=== PATIENT | female | born 1995 | race Caucasian/White ===

== ENCOUNTER 2016-11-30 11:03 | Day surgery (SDC) | payer BC ==
[2016-11-27 11:07] VITALS: BMI 23.3
[~2016-11-30 11:03] MED LIST: DEXAMETHASONE SOD PHOSPHATE 10 MG/ML 1 ML VIAL IV ONE; HYDROmorphone 1 MG/ML 1 ML SYRINGE IVP PRN; LACTATED RINGERS 1,000 ML IV SCH; MIDAZOLAM 2 MG/2 ML VIAL IV PRN; ONDANSETRON 4 MG/2 ML VIAL IVP ONE; SODIUM CHLORIDE 0.9% 1,000 ML IV SCH
[2016-11-30] MEDS ORDERED: MIDAZOLAM 2 MG/2 ML VIAL ONE (12:44)
[2016-11-30] MEDS ORDERED: PROPOFOL 10 MG/ML 20 ML VIAL IV ONE (12:44)
[2016-11-30] MEDS ORDERED: LIDOCAINE 1% INJ 10MG/ML (20 ML MDV) ONE (12:44)
[2016-11-30] MEDS ORDERED: ISOPROTERENOL 250 MCG/1.25 ML SYR IV ONE (12:44)
[2016-11-30] MEDS ORDERED: fentaNYL (PF) 50 MCG/ML 2 ML AMP ONE (12:44)
[2016-11-30] MEDS ORDERED: PHENYLEPHRINE-0.9% NACL SYG 1 MG/10 ML SYRINGE ONE (12:44)
[2016-11-30] MEDS ORDERED: LIDOCAINE 2% INJ 20 MG/ML SQ ONE (13:12)
[2016-11-30] MEDS ORDERED: ACETAMINOPHEN TAB 325 MG TAB PO PRN (14:16)
[2016-11-30] MEDS ORDERED: ACETAMINOPHEN IV (For NPO) 1,000 MG in EMPTY BAG 1 BAG IVPB ONE (14:16)
[2016-11-30] MEDS ORDERED: ALBUTEROL INHALER 60 PUFF/8 GM INHALER INHALATION PRN (14:17)
--- NOTE | 2016-11-30 15:03 | CE ---
DATE OF SERVICE: Camilla Long is a 21-year-old female who has a recurrent palpitations and dizzy spells and presyncopal spells who was brought in for an EP study for evaluation for recurrent palpitations, venous sheaths were placed in the right groin. An 8 Marshallese sheath, a 7 Marshallese sheath and a 6 Marshallese sheath was placed under local anesthesia after full prep and drape. Diagnostic catheter was placed in the high right atrial area, His bundle area and RV. Later coronary sinus catheter was placed. Later catheter was placed in the coronary sinus. Baseline measurements were as follows and were normal: Sinus cycle length 728 ms, NM interval 138 ms, QRS 103 ms, QT 348 ms, AH 97 ms, HV 31 ms. Sinus node recovery times at 600, five hundred and 400 ms were 1258, 1333 and 1085 ms. The corresponding corrected sinus recovery times were within normal limits. There was no evidence for slow pathway conduction and no delta waves. AV node Wenckebach block in the baseline state 430 ms, VA block greater than 600 ms. Isuprel was started straight pacing was performed. There was no evidence for slow pathway conduction or Delta waves. AV node Wenckebach block improved to 220 ms. VA Wenckebach block 310 ms. Atrial extrastimulation was performed and AV node ERP was ( )/200 ms. VA ERP was 370/290 ms paced. Burst stimulation from the high right atrium was performed. Burst stimulation from the right ventricular was performed. No SVT or VT was induced. Atrial extrastimulation was performed after triple extra stimuli. No SVT was induced. Burst stimulation was performed from the high right atrium. No SVT was induced. Isuprel was stopped and the coronary sinus catheter was placed. AV node Wenckebach block from the coronary sinus was 340 ms. No delta waves, no slow pathway conduction, atrial ERP was 450/310/330 milliseconds from the coronary. VA Wenckebach block at 500 ms. A detailed EP study was performed both on high-dose Isuprel, during Isuprel washout and in the baseline state. No SVT was induced. There was no evidence of slow pathway conduction or any other excessive pathway conduction or induction of atrial tachycardia. All catheters were removed and patient was transferred back to telemetry. RESULT: 1. Diagnostic EP study for palpitations reveled normal baseline measurements. 2. Normal sinus node function. 3. Normal AV node function without evidence of slow pathway conduction. 4. No evidence for any excessive pathway conduction. 5. No induction of ST-T or VT. PLAN: Tilt table testing tomorrow.
--- NOTE | 2016-11-30 15:04 | LTR ---
November 30, 2016 RE: MercedesCamilla Dear Dr. Lares: I had the pleasure of seeing Keyana Long in electrophysiology follow up. Keyana underwent a diagnostic EP study, which did not reveal any inducible arrhythmias. In fact, EP study was completely normal both on and off Isuprel. I will schedule her for a tilt table test tomorrow to see if she has vasodepressive syncope as the cause of her secondary sinus tachycardia and palpitations. Thank you for entrusting me with care of your patient. Warm regards, Sincerely, LAURENT BERG MD
[2016-11-30] MEDS ORDERED: ALBUTEROL NEBULIZED 2.5 MG/3 ML INHALATION PRN (15:31)
[2016-11-30 18:51] VITALS: RESP 16
[2016-12-01] MEDS ORDERED: NORGESTIMATE ETHINYL ESTRADIOL PO SCH (09:00)
[2016-12-01] MEDS ORDERED: FLUDROCORTISONE 0.1 MG TAB PO SCH (09:00)
[2016-12-01] MEDS ORDERED: SODIUM CHLORIDE 0.9% 500 ML IV ONE (10:10)
[2016-12-01 11:24] VITALS: BP 99/62; PULSE 72; TEMP 98.9
--- NOTE | 2016-12-01 17:27 | PN ---
Ms. Camilla Long underwent diagnostic EP study, which was completely normal and subsequently, she underwent a tilt test, which showed evidence of neurocardiogenic syncope as well as orthostatic intolerance with secondary neurocardiogenic syncope. She was monitored overnight on telemetry and will be discharged home today. On examination, heart sounds are normal. Breath sounds are normal. Vitals stable. Blood pressure was 99/66 mmHg. Afebrile 98.9 degrees Fahrenheit. Respirations normal. IMPRESSION: Recurrent palpitations and presyncope and syncope likely secondary to orthostatic intolerance and neurocardiogenic syncope. No evidence for any arrhythmias. SUGGEST: 1. Increase fluid intake. 2. Increase salt intake. 3. Endurance training. 4. Strength training of core body and lower extremity muscles.
--- NOTE | 2016-12-01 17:34 | CE ---
DATE OF SERVICE: TILT TABLE TEST Baseline 12-lead ECG shows normal sinus rhythm and normal TN interval and incomplete right bundle branch block, normal QT interval, normal ST segments. The patient underwent tilt table test per protocol. Baseline blood pressure 101/56 mm of Hg. Baseline heart rate 79 beats a minute. The patient was tilted upright at an angle and angle of 70 degrees per protocol. There was an immediate rise in her heart rate to 116 beats a minute. Within 16 minutes, she started feeling hot, ears felt funny. She was lightheaded and then became pale and syncopal. Lowest blood pressure that was recorded just before passing out was 87/50 millimeters of mercury and this was preceded by a heart rate of 131 beats. When she was laid supine, her blood pressure and heart rate normalized. IMPRESSION: 1. Increase in heart rate upon assuming upright position and heart rate remain persistently elevated greater than 30 beats a minute as compared to baseline. 2. Secondary neurocardiogenic response to upright tilting. 3. Likely orthostatic intolerance. 4. Secondary due to cardiogenic syncope. Suggest: Increase fluid and salt intake. Strength training and lower extremities and isometric exercises as well as endurance training.
== END 2016-12-01 12:18 | disposition home or self-care (01) ==
LOC: CATHEP 11:03 → 3OBS 14:00 → CATHEP 12-01 12:18
PROVIDERS: ATTEND Internal Medicine Clinical Cardiac Electrophysiology
DX: R55 Syncope and collapse (principal); I48.92 Unspecified atrial flutter; R00.2 Palpitations; I45.10 Unspecified right bundle-branch block; I49.8 Other specified cardiac arrhythmias; Z82.49 Family history of ischemic heart disease and other diseases of the circulatory system; J45.909 Unspecified asthma, uncomplicated; Z79.899 Other long term (current) drug therapy; Z88.8 Allergy status to other drugs, medicaments and biological substances
CPT/HCPCS: 93623; 93620; 93660; 81025; C1894; C1769 ×2; C1730 ×2; C1892; J2001 ×2; J2250; J3010; J0131; J2370; J2704

== ENCOUNTER → 2017-10-19 | Outpatient (CLI) | payer BC ==
[2017-10-19 12:48] LABS: Basophils # (A) 0.1 k/uL (0-0.2); Basophils % (A) 1 %; Eosinophils # (A) 0.5 k/uL (0-0.7); Eosinophils % (A) 5 %; HCT 40.9 % (34.0-46.0); HGB 12.8 gm/dL (11.4-16.0); Lymphocytes # (A) 2.2 k/uL (1.0-4.8); Lymphocytes % (A) 23 %; MCH 26.6 pg (25.0-35.0); MCHC 31.3 g/dL (31.0-37.0); MCV 85.1 fL (80.0-100.0); Monocytes # (A) 0.5 k/uL (0-1.0); Monocytes % (A) 5 %; Neutrophils # (A) 6.4 k/uL (1.3-7.7); Neutrophils % (A) 65 %; Platelet Count 279 k/uL (150-450); RBC 4.81 m/uL (3.80-5.40); RDW 12.6 % (11.5-15.5); WBC 9.8 k/uL (3.8-10.6)
[2017-10-19 13:04] LABS: ALT 22 U/L (9-52); AST 17 U/L (14-36); Albumin 4.4 g/dL (3.5-5.0); Alkaline Phosphatase 62 U/L (38-126); Anion Gap 12 mmol/L; Blood Urea Nitrogen 16 mg/dL (7-17); Calcium 9.7 mg/dL (8.4-10.2); Carbon Dioxide 23 mmol/L (22-30); Chloride 105 mmol/L (98-107); Glucose 92 mg/dL (74-99); Potassium 4.6 mmol/L (3.5-5.1); Sodium 140 mmol/L (137-145); Total Bilirubin 0.7 mg/dL (0.2-1.3); Total Protein 7.2 g/dL (6.3-8.2)
[2017-10-19 13:43] LABS: T4, Free (Free Thyroxine) 1.17 ng/dL (0.78-2.19)
--- NOTE | 2017-10-19 17:53 | ECHOF ---
Referral Reason:I95.1 Orthostatic hypotension,R00.2 Palp MEASUREMENTS -------- HEIGHT: 170.2 cm WEIGHT: 77.1 kg BP: 111/58 RVIDd: 2.4 cm (< 3.3) IVSd: 0.7 cm (0.6 - 1.1) LVIDd: 4.6 cm (3.9 - 5.3) LVPWd: 0.8 cm (0.6 - 1.1) IVSs: 1.4 cm LVIDs: 3.1 cm LVPWs: 1.3 cm LA Diam: 2.4 cm (2.7 - 3.8) Ao Diam: 2.7 cm (2.0 - 3.7) AV Cusp: 2.1 cm (1.5 - 2.6) MV EXCURSION: 11.844 mm (> 18.000) MV EF SLOPE: 102 mm/s (70 - 150) EPSS: 0.7 cm MV E Kimani: 1.03 m/s MV DecT: 165 ms MV A Kimani: 0.64 m/s MV E/A Ratio: 1.61 FINDINGS -------- Sinus rhythm. This was a technically good study. The left ventricular size is normal. Left ventricular wall thickness is normal. Overall left vent ricular systolic function is normal with, an EF between 55 - 60 %. The right ventricle is normal in size and function. The left atrium is normal in size. The right atrium is normal in size. The aortic valve is trileaflet and appears structurally normal. Trace to mild aortic regurgitation. The tricuspid valve appears structurally normal. Trace/mild (physiologic) pulmonic regurgitation. The aortic root size is normal. Normal inferior vena cava with normal inspiratory collapse consistent with estimated right atrial pre ssure of 5 mmHg. There is no pericardial effusion. CONCLUSIONS -------- 1. Sinus rhythm. 2. This was a technically good study. 3. The left ventricular size is normal. 4. Left ventricular wall thickness is normal. 5. Overall left ventricular systolic function is normal with, an EF between 55 - 60 %. 6. The right ventricle is normal in size and function. 7. The left atrium is normal in size. 8. The right atrium is normal in size. 9. The aortic valve is trileaflet and appears structurally normal. 10. Trace to mild aortic regurgitation. 11. The tricuspid valve appears structurally normal. 12. Trace/mild (physiologic) pulmonic regurgitation. 13. The aortic root size is normal. 14. Normal inferior vena cava with normal inspiratory collapse consistent with estimated right atrial pressure of 5 mmHg. 15. There is no pericardial effusion. INTE[employer]ATION SOLUTION ARCHITECT: Inna Butcher RDCS
== END | disposition home or self-care (01) ==
LOC: RADECHMAIN 12:17
PROVIDERS: ATTEND Internal Medicine Critical Care Medicine
DX: I35.1 Nonrheumatic aortic (valve) insufficiency (principal); R00.2 Palpitations; J45.909 Unspecified asthma, uncomplicated; I95.1 Orthostatic hypotension
CPT/HCPCS: 36415; 80053; 82533; 84439; 84443; 85025; 93225; 93226; 93306

== ENCOUNTER 2018-10-07 11:24 | Emergency (ER) | payer BC ==
[2018-10-07 11:30] VITALS: RESP 18; TEMP 98.1
[2018-10-07] MEDS ORDERED: KETOROLAC 30 MG/ML 1 ML VIAL IVP STA (11:49)
[2018-10-07] MEDS ORDERED: SODIUM CHLORIDE 0.9% 1,000 ML IV STA (11:49)
[2018-10-07] MEDS ORDERED: ONDANSETRON 4 MG/2 ML VIAL IVP STA (11:49)
--- NOTE | 2018-10-07 11:55 | ED ---
Abdominal Pain HPI - General Chief Complaint: Abdominal Pain Stated Complaint: Abd.pain/nausea Time Seen by Provider: 10/07/18 11:34 Source: patient, RN notes reviewed, old records reviewed Mode of arrival: ambulatory Limitations: no limitations - History of Present Illness Initial Comments: This Patient is a 23-year-old female who presents emergency department today with chief complaint of right lower abdominal pain for the past week. She reports it seems to be worse whenever she urinates or eating. She states it does not burn to urinate. Just some pressure and symptoms of urinating cause pain. Patient states that she is due for her menstrual cycle and waning week. She denies chance of . She denies any abnormal vaginal bleeding or discharge. She feels nauseated but has had no vomiting. Patient relates that she has no significant abdominal history. - Related Data Home Medications Medication Instructions Recorded Confirmed Ibuprofen [Motrin Ib] 800 mg PO Q6HR PRN 10/07/18 10/07/18 Previous Rx's Medication Instructions Recorded Acetaminophen with Codeine 1 tab PO Q6H PRN 3 Days #12 tab 10/07/18 [Tylenol w/codeine #3] Allergies Allergy/AdvReac Type Severity Reaction Status Date / Time oseltamivir [From Tamiflu] AdvReac Nausea & Verified 10/07/18 12:19 Vomiting Review of Systems ROS Statement: Those systems with pertinent positive or pertinent negative responses have been documented in the HPI. ROS Other: All systems not noted in ROS Statement are negative. Past Medical History Past Medical History: Asthma Additional Past Medical History / Comment(s): Palpitations, lightheaded, dizziness, occasional migraines, see Dr Rodriguez H & P History of Any Multi-Drug Resistant Organisms: None Reported Past Surgical History: Adenoidectomy, Orthopedic Surgery, Tonsillectomy Additional Past Surgical History / Comment(s): ANKLE, WRIST, LYMPH NODE BX NEGATIVE Past Anesthesia/Blood Transfusion Reactions: No Reported Reaction Past Psychological History: No Psychological Hx Reported Smoking Status: Never smoker Past Alcohol Use History: Occasional Past Drug Use History: None Reported - Past Family History Mother Family Medical History: Asthma, Fibromyalgia, Hypertension Additional Family Medical History / Comment(s): [place], migraines, scolosis Father Family Medical History: No Reported History Brother(s) Family Medical History: Asthma Additional Family Medical History / Comment(s): Migraines, scolosis, anxiety Sister(s) Family Medical History: Asthma Additional Family Medical History / Comment(s): Migraines, scolosis General Exam - General Exam Comments Initial Comments: Pleasant 23-year-old female. Alert and oriented. No distress. Limitations: no limitations General appearance: alert, in no apparent distress Head exam: Present: atraumatic, normocephalic, normal inspection Eye exam: Present: normal appearance, PERRL, EOMI. Absent: scleral icterus, conjunctival injection, periorbital swelling ENT exam: Present: normal exam, mucous membranes moist Neck exam: Present: normal inspection. Absent: tenderness, meningismus, lymphadenopathy Respiratory exam: Present: normal lung sounds bilaterally. Absent: respiratory distress, wheezes, rales, rhonchi, stridor Cardiovascular Exam: Present: regular rate, normal rhythm, normal heart sounds. Absent: systolic murmur, diastolic murmur, rubs, gallop, clicks GI/Abdominal exam: Present: soft, tenderness (Right lower quadrant tenderness), normal bowel sounds. Absent: distended, guarding, rebound, rigid Extremities exam: Present: normal inspection, full ROM, normal capillary refill. Absent: tenderness, pedal edema, joint swelling, calf tenderness Back exam: Present: normal inspection Neurological exam: Present: alert, oriented X3, CN II-XII intact Psychiatric exam: Present: normal affect, normal mood Course Vital Signs 10/07/18 10/07/18 11:27 12:29 Temperature 98.1 F Pulse Rate 94 81 Respiratory 18 18 Rate Blood Pressure 123/77 109/71 O2 Sat by Pulse 100 99 Oximetry Medical Decision Making - Medical Decision Making Patient's 23-year-old female who presents with complaint of right lower quadrant tenderness 1 week. She has no fever. She started on IV fluids and lab work was obtained. Patient's labwork was reviewed and negative for any acute changes. White count was within normal limits. Liver enzymes are normal. Patient's reevaluation to T-System some right lower quadrant pain. I decided to complete a transvaginal ultrasound. There is evidence of a very large right ovarian cyst measuring 4 x 2 cm. Patient has been advised of these symptoms. There is no evidence of torsion. Patient was advised to complete a possibility of early appendicitis, but very low suspicion to no fever and normal white blood cell count. Patient will be discharged with a short course of pain medication. Opiates or talking for completed. Discussed following up with [employer]. All questions answered return parameters were discussed. - Lab Data Result diagrams: 10/07/18 11:45 10/07/18 11:45 Lab Results 10/07/18 10/07/18 10/07/18 Range/Units 11:45 11:45 11:45 WBC 9.3 (3.8-10.6) k/uL RBC 4.90 (3.80-5.40) m/uL Hgb 13.6 (11.4-16.0) gm/dL Hct 41.3 (34.0-46.0) % MCV 84.3 (80.0-100.0) fL MCH 27.8 (25.0-35.0) pg MCHC 33.0 (31.0-37.0) g/dL RDW 13.3 (11.5-15.5) % Plt Count 268 (150-450) k/uL Neutrophils % 67 % Lymphocytes % 22 % Monocytes % 6 % Eosinophils % 4 % Basophils % 0 % Neutrophils # 6.3 (1.3-7.7) k/uL Lymphocytes # 2.0 (1.0-4.8) k/uL Monocytes # 0.5 (0-1.0) k/uL Eosinophils # 0.4 (0-0.7) k/uL Basophils # 0.0 (0-0.2) k/uL PT 10.0 (9.0-12.0) sec INR 0.9 (<1.2) APTT 26.2 (22.0-30.0) sec Sodium 138 (137-145) mmol/L Potassium 4.3 (3.5-5.1) mmol/L Chloride 102 (98-107) mmol/L Carbon Dioxide 25 (22-30) mmol/L Anion Gap 11 mmol/L BUN 19 H (7-17) mg/dL Creatinine 0.59 (0.52-1.04) mg/dL Est GFR (CKD-EPI)AfAm >90 (>60 ml/min/1.73 sqM) Est GFR (CKD-EPI)NonAf >90 (>60 ml/min/1.73 sqM) Glucose 95 (74-99) mg/dL Calcium 9.7 (8.4-10.2) mg/dL Total Bilirubin 0.6 (0.2-1.3) mg/dL AST 24 (14-36) U/L ALT 9 (9-52) U/L Alkaline Phosphatase 66 (38-126) U/L Total Protein 7.5 (6.3-8.2) g/dL Albumin 4.6 (3.5-5.0) g/dL Amylase 53 (30-110) U/L Lipase 40 (23-300) U/L Urine Color Urine Appearance (Clear) Urine pH (5.0-8.0) Ur Specific [place] (1.001-1.035) Urine Protein (Negative) Urine Glucose (UA) (Negative) Urine Ketones (Negative) Urine Blood (Negative) Urine Nitrite (Negative) Urine Bilirubin (Negative) Urine Urobilinogen (<2.0) mg/dL Ur Leukocyte Esterase (Negative) Urine WBC (0-5) /hpf Ur Squamous Epith Cells (0-4) /hpf Urine Bacteria (None) /hpf Urine Mucus (None) /hpf Urine HCG, Qual (Not Detectd) 10/07/18 10/07/18 Range/Units 11:45 11:45 WBC (3.8-10.6) k/uL RBC (3.80-5.40) m/uL Hgb (11.4-16.0) gm/dL Hct (34.0-46.0) % MCV (80.0-100.0) fL MCH (25.0-35.0) pg MCHC (31.0-37.0) g/dL RDW (11.5-15.5) % Plt Count (150-450) k/uL Neutrophils % % Lymphocytes % % Monocytes % % Eosinophils % % Basophils % % Neutrophils # (1.3-7.7) k/uL Lymphocytes # (1.0-4.8) k/uL Monocytes # (0-1.0) k/uL Eosinophils # (0-0.7) k/uL Basophils # (0-0.2) k/uL PT (9.0-12.0) sec INR (<1.2) APTT (22.0-30.0) sec Sodium (137-145) mmol/L Potassium (3.5-5.1) mmol/L Chloride (98-107) mmol/L Carbon Dioxide (22-30) mmol/L Anion Gap mmol/L BUN (7-17) mg/dL Creatinine (0.52-1.04) mg/dL Est GFR (CKD-EPI)AfAm (>60 ml/min/1.73 sqM) Est GFR (CKD-EPI)NonAf (>60 ml/min/1.73 sqM) Glucose (74-99) mg/dL Calcium (8.4-10.2) mg/dL Total Bilirubin (0.2-1.3) mg/dL AST (14-36) U/L ALT (9-52) U/L Alkaline Phosphatase (38-126) U/L Total Protein (6.3-8.2) g/dL Albumin (3.5-5.0) g/dL Amylase (30-110) U/L Lipase (23-300) U/L Urine Color Yellow Urine Appearance Cloudy H (Clear) Urine pH 6.0 (5.0-8.0) Ur Specific [place] 1.020 (1.001-1.035) Urine Protein Trace H (Negative) Urine Glucose (UA) Negative (Negative) Urine Ketones Negative (Negative) Urine Blood Negative (Negative) Urine Nitrite Negative (Negative) Urine Bilirubin Negative (Negative) Urine Urobilinogen <2.0 (<2.0) mg/dL Ur Leukocyte Esterase Large H (Negative) Urine WBC 5 (0-5) /hpf Ur Squamous Epith Cells 9 H (0-4) /hpf Urine Bacteria Rare H (None) /hpf Urine Mucus Occasional H (None) /hpf Urine HCG, Qual Not Detected (Not Detectd) - Radiology Data Radiology results: report reviewed Small amount of free fluid in the cul-de-sac. Multi-septal focus associated with right ovary could represent hemorrhagic cyst, endometrioma, torsion is not evident. Disposition Clinical Impression: Right ovarian cyst Disposition: HOME SELF-CARE Condition: Good Instructions: Ovarian Cyst (ED) Additional Instructions: Patient advised to follow-up with primary care provider and OBGYN. Return to emergency department if any alarming signs or symptoms occur. Prescriptions: Acetaminophen with Codeine [Tylenol w/codeine #3] 1 tab PO Q6H PRN 3 Days #12 tab PRN Reason: Pain Is patient prescribed a controlled substance at d/c from ED?: No Referrals: Ac Jenkins DO [Primary Care Provider] - 1-2 days Lynn Abarca DO [Doctor of Osteopathic Medicine] - 1-2 days Time of Disposition: 15:01
[2018-10-07 12:27] LABS: Basophils % (A) 0 %; Eosinophils # (A) 0.4 k/uL (0-0.7); Eosinophils % (A) 4 %; HCT 41.3 % (34.0-46.0); HGB 13.6 gm/dL (11.4-16.0); Lymphocytes % (A) 22 %; MCH 27.8 pg (25.0-35.0); MCV 84.3 fL (80.0-100.0); Mean Platelet Volume 6.7; Monocytes # (A) 0.5 k/uL (0-1.0); Monocytes % (A) 6 %; Neutrophils # (A) 6.3 k/uL (1.3-7.7); Neutrophils % (A) 67 %; Platelet Count 268 k/uL (150-450); RDW 13.3 % (11.5-15.5); WBC 9.3 k/uL (3.8-10.6)
[2018-10-07 12:35] LABS: Appearance,Urine Cloudy (Clear); Bacteria,Urine Rare /hpf; Bilirubin,Urine Negative (Negative); Blood,Urine Negative (Negative); Color,Urine Yellow; Glucose,Urine (UA) Negative (Negative); INR 0.9 (<1.2); Ketones,Urine Negative (Negative); Leukocyte Esterase,Urine Large (Negative); Mucus,Urine Occasional /hpf; Nitrite,Urine Negative (Negative); Partial Thromboplastin Time 26.2 sec (22.0-30.0); Protein,Urine Trace (Negative); Squamous Epithelial Cell,Urine 9 /hpf (0-4); Urobilinogen,Urine <2.0 mg/dL (<2.0)
[2018-10-07 12:36] LABS: ALT 9 U/L (9-52); AST 24 U/L (14-36); Albumin 4.6 g/dL (3.5-5.0); Alkaline Phosphatase 66 U/L (38-126); Amylase 53 U/L (30-110); Anion Gap 11 mmol/L; Blood Urea Nitrogen 19 mg/dL (7-17); Calcium 9.7 mg/dL (8.4-10.2); Carbon Dioxide 25 mmol/L (22-30); Chloride 102 mmol/L (98-107); Glucose 95 mg/dL (74-99); Lipase 40 U/L (23-300); Potassium 4.3 mmol/L (3.5-5.1); Sodium 138 mmol/L (137-145); Total Bilirubin 0.6 mg/dL (0.2-1.3); Total Protein 7.5 g/dL (6.3-8.2)
--- NOTE | 2018-10-07 12:59 | XR ---
Abdomen HISTORY: Right-sided abdominal pain Frontal view of the abdomen on 2 images correlated prior abdomen 06/17/2003 There is a spinal curvature again noted. Lung bases are clear. No evident pneumoperitoneum or bowel o bstruction. No pathologic calcification. IMPRESSION: Nonobstructive bowel gas pattern.
--- NOTE | 2018-10-07 14:50 | US ---
EXAMINATION TYPE: US transvaginal DATE OF EXAM: 10/07/2018 COMPARISON: NONE CLINICAL HISTORY: Pain. Right pelvic pain for 1 week TECHNIQUE: Transvaginal (TV). Date of LMP: beginning september EXAM MEASUREMENTS: Uterus: 8.5 x 3.5 x 4.6 cm Endometrial Stripe: 0.8 cm Right Ovary: 6.5 x 3.8 x 4.2 cm Left Ovary: 3.8 x 1.9 x 2.0 cm 1. Uterus: Anteverted wnl 2. Endometrium: wnl 3. Right Ovary: enlarged with complex area = 4.7 x 3.0 x 4.1cm 4. Left Ovary: follicles noted Spectral, color and waveform doppler imaging shows arterial and venous flow within the ovaries; the re is no evidence for ovarian torsion. 5. Bilateral Adnexa: small amount of free fluid right adnexa 6. Posterior cul-de-sac: small amount of free fluid IMPRESSION: Small amount of free fluid in the cul-de-sac. Multiseptated focus associated with the rig ht ovary could represent hemorrhagic cyst, endometrioma, torsion is not evident
[2018-10-07 15:26] VITALS: BP 111/70; PULSE 90
== END 2018-10-07 15:26 | disposition home or self-care (01) ==
LOC: EC 11:24
DX: N83.201 Unspecified ovarian cyst, right side (principal); R11.0 Nausea; Z88.8 Allergy status to other drugs, medicaments and biological substances
CPT/HCPCS: 36415; 80053; 82150; 83690; 85025; 85610; 85730; 81001; 81025; 74018; 93975; 76830; 99285; 96374; 96375; 96361 ×3; J2405; J1885

== ENCOUNTER → 2023-08-18 | Outpatient (CLI) | payer OTHER | END | disposition home or self-care (01) | LOC: LABWHC1 15:14 | PROVIDERS: ATTEND Internal Medicine | DX: Z34.90 Encounter for supervision of normal pregnancy, unspecified, unspecified trimester (principal); Z3A.00 Weeks of gestation of pregnancy not specified | CPT/HCPCS: 36415; 84702 ==

== ENCOUNTER → 2023-08-20 | Outpatient (CLI) | payer OTHER ==
--- NOTE | 2023-08-20 13:12 | US ---
EXAMINATION TYPE: Transabdominal DATE OF EXAM: 08/20/2023 12:58 PM COMPARISON: Vaginal ultrasound 10/08/2018 CLINICAL INDICATION: Female, 28 years old with history of Z34.90, N93.9 ABNORMAL UTERINE AND VAGINAL BLEEDIN; Dark red vaginal bleeding for 1 week EXAM PERFORMED: Transabdominal (TA) EXAM MEASUREMENTS: GESTATIONAL AGE / DATING Physician Established: Not yet established Dates by LMP: (5 weeks/6 days) EDC: 04/15/24 Dates by First Scan: No previous this is first scan Dates by Current Scan for: No IUP seen at this time MATERNAL ANATOMY Uterus: 8.9 x 4.5 x 6.5cm Right Ovary: 3.0 x 1.9 x 1.4cm Left Ovary: 4.7 x 4.2 x 2.5cm Post CDS / Adnexa: wnl Presence of free fluid: no Presence of corpus luteal cyst: yes, anechoic area left ovary = 2.7 x 2.5 x 2.7cm GESTATION / SURVEY IUP: no evidence of IUP at this time, ?too early vs other etiology Date of LMP: 07/10/23 Beta HcG (if available): 1158.0 08/18/23 No gestational sac, yolk sac, or pole identified. IMPRESSION: No evidence of intrauterine gestational sac in this patient with a positive B-hCG. This can be seen i n early , ectopic and spontaneous . Follow up pelvic ultrasound in 5-7 day s and serial beta hCG studies are recommended.
== END | disposition home or self-care (01) ==
LOC: RADUSWWP 12:41
PROVIDERS: ATTEND Internal Medicine
DX: Z36.89 Encounter for other specified antenatal screening (principal); Z34.90 Encounter for supervision of normal pregnancy, unspecified, unspecified trimester; N93.9 Abnormal uterine and vaginal bleeding, unspecified
CPT/HCPCS: 76801

== ENCOUNTER → 2023-08-25 | Outpatient (CLI) | payer OTHER | END | disposition home or self-care (01) | LOC: LABWHC1 10:41 | PROVIDERS: ATTEND Internal Medicine | DX: Z34.90 Encounter for supervision of normal pregnancy, unspecified, unspecified trimester (principal); Z3A.00 Weeks of gestation of pregnancy not specified | CPT/HCPCS: 36415; 84702 ==

== ENCOUNTER → 2023-08-25 | Outpatient (CLI) | payer OTHER ==
--- NOTE | 2023-08-25 10:53 | US ---
EXAMINATION TYPE: Transabdominal DATE OF EXAM: 08/25/2023 10:38 AM COMPARISON: NONE CLINICAL INDICATION: Female, 28 years old with history of O46.91 BLEEDING/SPOTTING; spotting EXAM PERFORMED: Transvaginal (TV) and Transabdominal (TA) EXAM MEASUREMENTS: GESTATIONAL AGE / DATING Physician Established: ( 6 weeks/4 days) EDC: 04/15/2024 Dates by LMP: (6 weeks/4 days) EDC: 04/15/2024 Dates by First Scan: (5 weeks/6 days) EDC: 04/15/2024 Dates by Current Scan for: (6 weeks/0 days) EDC: 04/19/2024 MATERNAL ANATOMY Uterus: 9.9 x 4.1 x 6.7 cm Right Ovary: 2.6 x 1.2 x 1.3 cm Left Ovary: 4.0 x 3.0 x 4.2 cm Post CDS / Adnexa: wnl Presence of free fluid: no Presence of corpus luteal cyst: yes left 3.6 x 1.8 x 2.4 cm Presence of subchorionic bleed: no GESTATION / SURVEY CRL: 0.30 m (6 weeks/0 days) Yolk Sac (normal less than 6mm): 3 mm Heart Rate: 103 bpm Rhythm: Normal IUP: Viable IUP Date of LMP: Beta HcG (if available): Not available at this time getting labs done now. Urinary bladder is sonolucent. Posterior wall is normal. IMPRESSION: 1. Single intrauterine gestation estimated at 6 weeks 0 days gestation based on the crown-rump length . Cardiac activity measures 103 bpm.
== END | disposition home or self-care (01) ==
LOC: RADUSWWP 10:06
PROVIDERS: ATTEND Internal Medicine
DX: O36.60X0 Maternal care for excessive fetal growth, unspecified trimester, not applicable or unspecified (principal); Z3A.01 Less than 8 weeks gestation of pregnancy
CPT/HCPCS: 76801; 76817

== ENCOUNTER → 2025-04-30 | Outpatient (CLI) | payer OTHER ==
[2025-04-30 10:50] LABS: Basophils # (A) 0.06 X 10*3/uL (0.00-0.10); Basophils % (A) 0.8 %; Eosinophils # (A) 1.32 X 10*3/uL (0.04-0.35); Eosinophils % (A) 17.3 %; HCT 39.9 % (37.2-46.3); HGB 12.2 g/dL (12.0-15.0); Immature Grans, Automated 0.30 %; Lymphocytes # (A) 2.23 X 10*3/uL (0.90-5.00); Lymphocytes % (A) 29.3 %; MCH 26.5 pg (27.0-32.0); MCHC 30.6 g/dL (32.0-37.0); MCV 86.6 FL (80.0-97.0); Monocytes # (A) 0.50 X 10*3/uL (0.20-1.00); Monocytes % (A) 6.6 %; NRBC Per 100 WBC 0 X 10*3/uL (0.00-0.01); Neutrophils # (A) 3.49 X 10*3/uL (1.80-7.70); Neutrophils % (A) 45.7 %; Platelet Count 304 X 10*3/uL (140-440); RBC 4.61 X 10*6/uL (4.10-5.20); RDW 14.5 % (11.5-14.5); WBC 7.62 X 10*3/uL (4.50-10.00)
[2025-04-30 11:29] LABS: ALT 132 U/L (8-44); AST 45 U/L (13-35); Albumin 4.3 g/dL (3.8-4.9); Albumin/Globulin Ratio 1.87 Ratio (1.60-3.17); Alkaline Phosphatase 159 U/L (41-126); Amylase 55 U/L (23-121); Anion Gap 11.20 mmol/L (4.00-12.00); BUN/Creat Ratio 17.25 Ratio (12.00-20.00); Blood Urea Nitrogen 13.8 mg/dL (9.0-27.0); Calcium 9.1 mg/dL (8.7-10.3); Carbon Dioxide 22.8 mmol/L (21.6-31.8); Chloride 106 mmol/L (96-109); Globulin 2.3 g/dL (1.6-3.3); Glucose 104 mg/dL (70-110); Lipase 36 U/L (14-63); Potassium 4.2 mmol/L (3.5-5.5); Sodium 140 mmol/L (135-145); Total Protein 6.6 g/dL (6.2-8.2)
== END | disposition home or self-care (01) ==
LOC: LABWHC1 07:41
PROVIDERS: ATTEND Internal Medicine
DX: R10.11 Right upper quadrant pain (principal)
CPT/HCPCS: 36415; 80053; 81025; 82150; 83690; 84443; 85025; 87086